=== PATIENT | female | born 1975 | race Hispanic/Latino ===

== ENCOUNTER → 2020-03-13 | Outpatient (CLI) | payer OTHER | LOC: MRI 13:19 | PROVIDERS: ATTEND Internal Medicine Cardiovascular Disease | DX: R20.2 Paresthesia of skin (principal); R51 Headache; Z86.73 Personal history of transient ischemic attack (TIA), and cerebral infarction without residual deficits | CPT/HCPCS: 70551 ==

== ENCOUNTER → 2024-12-05 | Outpatient (REF) | payer OTHER ==
[~2024-12-05] MED LIST: DIATRIZOATE MEGL/DIATRIZOA SOD 30 ML BTL PO ONE; IOPAMIDOL 370 MG/ML 100 ML INFUS..BTL INJ ONE
[2024-12-05 10:15] LABS: CREATININE, SERUM 0.62 mg/dL (0.57-1.11)
== END ==
LOC: CT 09:21
PROVIDERS: ATTEND Nurse Practitioner Family
DX: R10.9 Unspecified abdominal pain (principal)
CPT/HCPCS: 36415; 74177; 82565; 84520; Q9963; Q9967

== ENCOUNTER → 2025-01-03 | Outpatient (REF) | payer OTHER ==
[~2025-01-03] MED LIST changes: +ASPIRIN81 MG PO; +ATORVASTATIN CA20 MG PO; -DIATRIZOATE MEGL/DIATRIZOA SOD 30 ML BTL PO ONE; +DICYCLOMINE HCL10 MG PO; +FAMOTIDINE20 MG PO; +HYDROCHLOROTHIA25 MG; +HYZAAR 50-12.51 EACH PO; -IOPAMIDOL 370 MG/ML 100 ML INFUS..BTL INJ ONE; +METOPROLOL SUCC25 MG PO; +OZEMPIC2 MG/0.75
== END ==
LOC: RAD 08:00 → EDSTATUS 01-06 12:30
PROVIDERS: ATTEND Internal Medicine Gastroenterology
DX: Z01.818 Encounter for other preprocedural examination (principal); Z12.11 Encounter for screening for malignant neoplasm of colon; K21.9 Gastro-esophageal reflux disease without esophagitis
CPT/HCPCS: 93005

== ENCOUNTER → 2025-01-13 | Day surgery (SDC) | payer OTHER ==
[~2025-01-13] MED LIST changes: +LIDOCAINE HCL 2% LOCAL INJ 5 ML SDV VIAL INJ ONE; +MIDAZOLAM HCL 2 MG/2 ML VIAL ONE; +PROPOFOL IV EMULSION 50 ML IV ONE
[2025-01-13] MEDS: LACTATED RINGER'S 1,000 ML ONE (13:38)
[2025-01-13 15:30] VITALS: TEMP 98.1
[2025-01-13 16:00] VITALS: BP 109/74; PULSE 58; RESP 16; O2SAT 97
== END | disposition home or self-care (01) ==
LOC: OR 13:00
PROVIDERS: ATTEND Internal Medicine Gastroenterology
DX: K21.9 Gastro-esophageal reflux disease without esophagitis (principal); K44.9 Diaphragmatic hernia without obstruction or gangrene; K29.70 Gastritis, unspecified, without bleeding; K29.80 Duodenitis without bleeding; K57.30 Diverticulosis of large intestine without perforation or abscess without bleeding; K64.8 Other hemorrhoids; I10 Essential (primary) hypertension; Z80.0 Family history of malignant neoplasm of digestive organs; Z79.2 Long term (current) use of antibiotics; Z79.85 Long-term (current) use of injectable non-insulin antidiabetic drugs; Z79.3 Long term (current) use of hormonal contraceptives; Z79.82 Long term (current) use of aspirin; Z79.899 Other long term (current) drug therapy; Z68.36 Body mass index [BMI] 36.0-36.9, adult
CPT/HCPCS: 43239; 45378; J2003; J2250; J2704; J7121